=== PATIENT | female | born 1990 | race Asian ===

== ENCOUNTER → 2020-09-10 16:57 | Outpatient (CLI) | payer OTHER, SELFPAY ==
[2020-09-10 17:47] LABS: Add Manual Diff / Slide Review NO; Basophils Absolute Auto 0 /uL (0-100); Basophils Percent Auto 0.5 % (0-2); Eosinophils Absolute Auto 300 /uL (0-450); Eosinophils Percent Auto 3.4 % (2-4); Hematocrit 36.8 % (36-46); Hemoglobin 12.7 g/dL (12.0-16.0); Lymphocytes Absolute Auto 2000 /uL (1100-4500); Lymphocytes Percent Auto 22.1 % (25-40); Mean Corpuscular HGB Conc 34.6 % (30-36); Mean Corpuscular Hemoglobin 30.9 PG (26-34); Mean Corpuscular Volume 89.5 fL (80-100); Monocytes Absolute Auto 600 /uL (0-900); Monocytes Percent Auto 6.3 % (3-14); Neutrophils Absolute Auto 6200 /uL (1500-7000); Neutrophils Percent Auto 67.7 % (50-75); Platelet Count 281 X10^3/uL (150-400); Red Blood Cell Count 4.11 X10^6/uL (4.0-5.2); Red Cell Distribution Width 12.6 % (11.6-14.8); White Blood Cell Count 9.2 X10^3/uL (4.5-11.0)
[2020-09-10 18:28] LABS: Thyroid Stimulating Hormone 2.31 uIU/mL (0.47-4.68)
[2020-09-10 18:31] LABS: Hepatitis B Surface Antigen NEGATIVE s/c (NEGATIVE); Rubella Antibody IgG 4.7 IU/mL (>15)
[2020-09-10 18:51] LABS: HIV 1 & 2 Ab/Ag 4th Gen Combo NEGATIVE (NEGATIVE); Hep C Virus Ab w/Reflex Quant NEGATIVE s/c (NEGATIVE)
[2020-09-11 03:15] LABS: HSV Type 1 AB, IgG >62.20 index (0.00-0.90)
[2020-09-11 05:37] LABS: RPR Screen Non Reactive (Non Reactive)
[2020-09-11 07:10] LABS: Varicella IgG Antibody 718 index (Immune >165)
== END ==
PROVIDERS: Referring Provider Student in an Organized Health Care Education/Training Program; Visit Provider Student in an Organized Health Care Education/Training Program
DX: Z34.80 Encounter for supervision of other normal pregnancy, unspecified trimester (principal)
CPT/HCPCS: 36415; 80055; 84443; 86695; 86787; 86803; 86850; 86900; 86901; 87389

== ENCOUNTER → 2020-09-15 09:44 | Outpatient (CLI) | payer OTHER, SELFPAY ==
--- NOTE | 2020-09-15 09:46 | DI.US.S_ITS ---
PROCEDURE: US OB <= 14 WEEKS FETUS INDICATIONS: size and dates OUTSIDE/PRIOR DATING DATA: First dating scan (date and location): 09/15/2020. Estimated date of delivery (AIDEE) from first dating scan: 05/08/2020. TECHNIQUE: Real-time scanning was performed of the fetus and maternal pelvic organs, with image documentation. Endovaginal scanning was also performed to better visualize the fetus and maternal ovaries. COMPARISON: None. FINDINGS: Embryo: [place]-rump length measures 5 mm corresponding to 6 weeks 2 days. Heart rate: No definitive cardiac activity at this time. 8 mm rounded cystic structures also is noted within the amniotic sac. Measurement variability in dating: +/- 4 weeks by LMP, +/- 7 days by mean sac diameter (use before 6 weeks gestation if crown-rump length not able to be measured), +/- 5 days by crown-rump length (up to 8 weeks 6 days gestation), +/- 7 days by crown-rump length (up to 13 weeks 6 days gestation). Maternal organs: Ovaries within normal limits . IMPRESSION: Intrauterine with crown-rump length of 5 mm corresponding to 6 weeks 2 days and no definitive cardiac activity seen at this time. Follow-up in 1 week is recommended to assess embryonic viability. 8 mm cystic structure also noted within the amniotic sac of unclear etiology which also can be reassessed on follow-up exam. Dictated by: Dangelo MCLAIN Interpreted: Jermaine Epperson MD on 09/15/2020 at 11:47 Transcribed by: BEN on 09/15/2020 at 11:50 Approved by: Jermaine Epperson M.D. on 09/15/2020 at 15:36
== END ==
PROVIDERS: PCP Student in an Organized Health Care Education/Training Program; Referring Provider Student in an Organized Health Care Education/Training Program; Visit Provider Student in an Organized Health Care Education/Training Program
DX: Z36.87 Encounter for antenatal screening for uncertain dates (principal); Z3A.01 Less than 8 weeks gestation of pregnancy
CPT/HCPCS: 76801; 76817

== ENCOUNTER → 2021-07-27 11:25 | Outpatient (CLI) | payer OTHER, SELFPAY ==
[2021-07-27 15:08] LABS: Urine N gonorrhoeae NOT DETECTED
[2021-07-27 15:19] LABS: Urine Chlamydia NOT DETECTED
== END ==
PROVIDERS: PCP Student in an Organized Health Care Education/Training Program; Visit Provider Obstetrics & Gynecology
DX: Z34.82 Encounter for supervision of other normal pregnancy, second trimester (principal); Z3A.18 18 weeks gestation of pregnancy
CPT/HCPCS: 87491; 87591

== ENCOUNTER → 2021-07-27 11:34 | Outpatient (CLI) | payer OTHER, SELFPAY ==
[2021-07-27 12:44] LABS: Add Manual Diff / Slide Review NO; Basophils Absolute Auto 0 /uL (0-100); Basophils Percent Auto 0.2 % (0-2); Eosinophils Absolute Auto 0 /uL (0-450); Eosinophils Percent Auto 0.4 % (2-4); Hematocrit 32.2 % (36-46); Hemoglobin 11.4 g/dL (12.0-16.0); Lymphocytes Absolute Auto 1600 /uL (1100-4500); Lymphocytes Percent Auto 15.4 % (25-40); Mean Corpuscular HGB Conc 35.3 % (30-36); Mean Corpuscular Hemoglobin 31.2 PG (26-34); Mean Corpuscular Volume 88.4 fL (80-100); Monocytes Absolute Auto 600 /uL (0-900); Monocytes Percent Auto 5.5 % (3-14); Neutrophils Absolute Auto 8400 /uL (1500-7000); Neutrophils Percent Auto 78.5 % (50-75); Platelet Count 294 X10^3/uL (150-400); Red Blood Cell Count 3.65 X10^6/uL (4.0-5.2); Red Cell Distribution Width 13.4 % (11.6-14.8); White Blood Cell Count 10.6 X10^3/uL (4.5-11.0)
[2021-07-27 13:28] LABS: Hepatitis B Surface Antigen NEGATIVE s/c (NEGATIVE); Rubella Antibody IgG 2.6 IU/mL (>15)
[2021-07-27 13:47] LABS: HIV 1 & 2 Ab/Ag 4th Gen Combo NEGATIVE (NEGATIVE); Hep C Virus Ab w/Reflex Quant NEGATIVE s/c (NEGATIVE)
[2021-07-28 08:08] LABS: RPR Screen Non Reactive (Non Reactive)
[2021-07-28 10:03] LABS: Varicella IgG Antibody 588 index (Immune >165)
[2021-07-29 20:17] LABS: AFP, Serum 51.3 ng/mL (.); Calc Gestational Age Ultrasound (.); Estriol, Free 1.74 ng/mL (.); Inhibin A, Dimeric 195.03 pg/mL (.); Inhibin A, MoM 1.34 (.); Maternal Ethnicity Other (.); Maternal Weight 167 lbs (.); Number of Fetuses No (.); OSBR Risk 1 IN 7850 (.); Results Report (.); Test Results *Screen Negative* (.); hCG, MoM 1.59 (.); hCG, Serum 42264 mIU/mL (.)
== END ==
PROVIDERS: Referring Provider Obstetrics & Gynecology; Visit Provider Obstetrics & Gynecology
DX: Z34.82 Encounter for supervision of other normal pregnancy, second trimester (principal); Z3A.18 18 weeks gestation of pregnancy
CPT/HCPCS: 36415; 80055; 82105; 82677; 84702; 86336; 86787; 86803; 86850; 86900; 86901; 87389; 87491; 87591

== ENCOUNTER → 2021-08-10 07:28 | Outpatient (CLI) | payer OTHER, SELFPAY ==
--- NOTE | 2021-08-10 07:29 | DI.US.S_ITS ---
PROCEDURE: OB >= 14 WEEKS FETUS INDICATIONS: ANATOMY SCAN OUTSIDE/PRIOR DATING DATA: Last menstrual period (LMP): Unknown. LMP-based estimated date of delivery (AIDEE): Un known First dating scan (date and location): 06/07/2021. Estimated date of delivery (AIDEE) from first dating scan: 12/25/2021. TECHNIQUE: Real-time scanning was performed of the fetus, with image documentation and biometric measurements. COMPARISON: [facility], OB <= 14 WEEKS FETUS, 06/07/2021, 9:44. [facility] OB <= 14 WEEKS FETUS, 09/15/2020, 9:10. [facility], OB >= 14 WEEKS FETUS, 07/27/2021, 11:24. FINDINGS: General: A single living intrauterine gestation is present. Presentation: Transverse. Placenta: Placental position is posterior and is low lying , lower placental edge measures 2.2 cm to the cervix. Amniotic fluid index: 12.5 cm, normal range is 5-24 cm. heart rate: 147 beats per minute. Maternal cervical canal: 3.8 cm long. Normal lower limit is 2.5 cm. biometrics: Biparietal diameter: 4.8 cm 20 weeks 4 days Head circumference: 18.2 cm 20 weeks 4 days Abdominal circumference: 15.4 cm 20 weeks 4 days Femur length: 3.4 cm 20 weeks 5 days Composite gestational age from initial scan: 20 weeks 3 days Composite gestational age from present scan: 20 weeks 4 days Estimated weight and percentile: 366 g, 56th percentile Anatomic survey: Neuro: Ventricles are non-dilated at less than 10 mm. Cisterna magna is normal at 3-11 mm. Cerebellum is normal in size and morphology. Nuchal skin fold: Normal at less than 6 mm between 14-21 weeks gestational age. Face: Nose and lips are within normal limits. Profile is not well seen. Spine: No evidence for spina bifida. Heart: 4-chambered heart and ventricular outflow tracts are suboptimally evaluated.. Diaphragm: Diaphragm is intact. Stomach: Left-sided stomach is present. Kidneys: No hydronephrosis. Normal is less than 5 mm in 2nd trimester, less than 7 mm in 3rd trimester. Cord: 3-vessel cord has orthotopic insertion. Bladder: Normal in size. Extremities: All 4 extremities identified. IMPRESSION: Single live intrauterine with ultrasound gestational age today of 20 weeks 4 days. profile as well as 4 chambered heart/outflow tracts are not well seen. Recommend follow-up imaging for further evaluation. We strive to produce accurate, complete, and clear reports of imaging services. To assist us in improving patient care, this report was composed using standard report templates and voice recognition software. Therefore, it may contain abnormal punctuation, insertions and/or omissions. Occasional wrong-word or sound-alike substitutions may occur. Though we review the report and make efforts to correct it, we do recommend that the report be read carefully in proper context to recognize any text inaccuracies. Dictated by: Faiza Campos M.D. on 08/10/2021 at 15:36 Approved by: Faiza Campos M.D. on 08/10/2021 at 15:42
== END ==
PROVIDERS: Referring Provider Obstetrics & Gynecology; Visit Provider Obstetrics & Gynecology
DX: Z34.82 Encounter for supervision of other normal pregnancy, second trimester (principal); Z3A.20 20 weeks gestation of pregnancy
CPT/HCPCS: 76811

== ENCOUNTER → 2021-09-21 11:00 | Outpatient (CLI) | payer OTHER, SELFPAY ==
[2021-09-21 12:25] LABS: Appearance Urine UA CLEAR; Bilirubin Urine UA NEGATIVE (NEGATIVE); Color Urine UA YELLOW; Glucose Urine UA NEGATIVE (Negative); Ketones Urine UA NEGATIVE (NEGATIVE); Leukocyte Esterase Urine UA 1+ (NEGATIVE); Nitrite Urine UA NEGATIVE (Negative); Occult Blood Urine UA NEGATIVE (Negative); Protein Urine UA NEGATIVE (Negative); Specific Gravity Urine UA 1.015 (1.000-1.035); Urobilinogen Urine UA 0.2 E.U./dL (0.2); pH Urine UA 6.5 (4.5-8.0)
[2021-09-21 12:48] LABS: Bacteria Urine Many (>30); RBC Urine None Seen (0-5/HPF); Squamous Epithelial Cell Urine 1-5 /HPF (0-5/HPF); WBC Urine 1-5/HPF (0-5/HPF)
== END ==
PROVIDERS: Visit Provider Obstetrics & Gynecology
DX: Z34.80 Encounter for supervision of other normal pregnancy, unspecified trimester (principal)
CPT/HCPCS: 81003; 81015; 87086

== ENCOUNTER → 2021-09-21 11:15 | Outpatient (CLI) | payer OTHER, SELFPAY ==
[2021-09-21 13:41] LABS: Hematocrit 29.5 % (36-46); Hemoglobin 10.2 g/dL (12.0-16.0)
[2021-09-21 14:37] LABS: GTT (PREG) 1 Hour PP 50gm Dose 197 mg/dL (76-139)
== END ==
PROVIDERS: Referring Provider Obstetrics & Gynecology; Visit Provider Obstetrics & Gynecology
DX: Z34.82 Encounter for supervision of other normal pregnancy, second trimester (principal); Z3A.26 26 weeks gestation of pregnancy
CPT/HCPCS: 36415; 81003; 81015; 82950; 85014; 85018; 87086

== ENCOUNTER → 2021-09-29 14:49 | Outpatient (CLI) | payer OTHER, SELFPAY ==
--- NOTE | 2021-09-29 17:40 | DIAB.GDA ---
Addendum entered by Natacha Gleason 10/06/21 10:58: 10/06/21 phone check-in: BG in goal with FBG 90 or less and all pc readings <120 with exception to one meal of 131 mg/dl (wrap for lunch). trying to incorporate CHO in moderation as discussed. MARIO VELEZ follow-up in one week Original Note: Initial Gestational Diabetes Assessment Name: Kena Durant Date: 09/29/21 Time: 3-420p Dx: Gestational Diabetes Provider: Jay AIDEE: 12/25/21 Weeks: 27 Kena presents for initial visit regarding GDM. Denies any FH or PMH of DM. 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 Reports she is unclear if she has GDM or not. Unaware of SMBG rx placed. After discussion, plans to last picker rx today for BG checking 4 x per day. Reports she has changed her diet dramatically since GDM screen. Cut out sweetened beverages, coffee with whip cream, and reduced fast food intake. Not sleeping great due to staying up late to talk with with time difference of 8 hours. Diet Recall: wakes 6-7a 8-9a: slice ww bread, cottage cheese, almond butter, half banana, hb egg (30g CHO) 12-2p: salad with egg, cheese, veggies (0g) 1-3p: low carb yogurt (0g) 8-9p: 3-4oz salmon, g beans, brown rice with quinoa and flax (40g) 12a: toast with cheese, chipotle michaud (15g) Eating out: mcdonalds, applebees, pizza Beverages: 16-20oz x 3-4 water Anthropometrics: Ht: 62 Wt: 175# (last OB appt 09/21) Prepregnancy wt: 145# reported Physical Activity: Walks dog every other day for 60 minutes. Self-Monitoring Blood Glucose: None Diabetes Medications: None Pertinent Labs: Screen 197mg/dL H Nutrition Rx: Carbohydrates: Daily: 180g Meal: 45-60g lunch and dinner; 30g breakfast Snack: 15-30g Nutrition Diagnosis: Altered nutrition related lab value r/t GDM dx aeb recent OGTT Nutrition and food related knowledge deficit r/t new dx and no previous mnt aeb diet recall and pt report and lab work Self monitoring deficit r/t knowledge deficit aeb pt report of no SMBG Intervention: This participant was very receptive. Provided appropriate educational handouts. Discussed the following topics: GDM pathophysiology and impact of hyperglycemia on mom and baby Risk for T2DM for mom and baby in the future Ways to reduce risk T2DM Plate Method, meal timing, carb counting, pairing macronutrients and spreading out CHO for better BG management Blood glucose goals (FBG: <95 and 2 hour <120 mg/dL); importance of checking 4x per day (FBG and pc) Review of how to check BG, dispose of sharps, and resources Impact of macronutrients on blood glucose Recommended servings for carbohydrates at meals and snacks Brainstormed appropriate meal plan based on her food preferences Impact of sleep on FBG Role of physical activity and following provider guidelines for safety Goals: Work on getting adequate sleep Switch to regular thai yogurt Vary dinner protein die set up worker meter and supplies Check BG 4x per day (FBG and 2 hr pc) Follow-up: MARIO VELEZ follow-up in one week via phone and two weeks in-person Natacha Gleason RDN, AGUSTIN Certified Diabetes Care and Instrument Technician T: [phone] F: [phone] [email or web address] Thank you for this referral
== END ==
PROVIDERS: Referring Provider Obstetrics & Gynecology; Visit Provider Obstetrics & Gynecology
DX: O24.419 Gestational diabetes mellitus in pregnancy, unspecified control (principal); Z3A.27 27 weeks gestation of pregnancy; Z71.3 Dietary counseling and surveillance
CPT/HCPCS: 97802

== ENCOUNTER → 2021-10-14 14:34 | Outpatient (CLI) | payer OTHER, SELFPAY ==
--- NOTE | 2021-10-14 15:43 | DIAB.GDFU ---
Follow-up Gestational Diabetes Assessment Name: Kena Durant Date: 10/14/21 Time: 250-325p Dx: Gestational Diabetes Provider: Jay AIDEE: 12/25/21 Weeks: 29 Kena presents for follow-up. Has concerns about whether she is eating enough carbs. Reports most meals at 0-45g CHO. Endorses eating 4 meals per day without snacks. Some concern as to how this may impact her weight gain. Reports some days eating fish 3-4 x in a day, however is measuring her portions per week to about 12oz in a week. This may result in some low protein days, but mercury intake is not currently a concern. Diet Recall: 9a: slice of thin ww toast with eggs ; 1c rice with salmon and salad (10-45g) 12-1p: rice, 2 oz fish and salad ; low carb BLT wrap (0-45g CHO) 5-6p: same 8-9: same Has questions about having a cheat day or is regular soda is ok sometimes. Also questions about eating out portions. Usually has burger, medium guzman, and soda (90g CHO or more). has not been eating out recently due to GDM dx. Reports improved sleep recently. Anthropometrics: Ht: 62 Wt: 175# (last OB appt 09/21) Prepregnancy wt: 145# reported Physical Activity: Walks dog every other day for 60 minutes usually. heat this week has impacted the consistency. Reports trying to walk later in the day when cooler or aiming to be more active in home. Self-Monitoring Blood Glucose: Picked up SMBG supplies. Checking FBG and 2 hour pc as recommended. Many missing postprandial, especially after dinner. States she was in [place] for work and skipped some readings. Overall trends are mostly in goal with one recent FBG elevation and only 2 total elevated postprandial. Again, not sure how dinners usually trend. Reports high carb intake on the 148 mg/dL reading, ate out. Date Pre Post Pre Post Pre Post HS 10/06 90 111 124 10/08 87 76 148 10/09 93 10/11 97 117 104 10/12 91 105 101 10/13 94 10/14 88 101 104 Diabetes Medications: None Pertinent Labs: Screen 197mg/dL H Nutrition Rx: Carbohydrates: Daily: 180g Meal: 45-60g lunch and dinner; 30g breakfast Snack: 15-30g Nutrition Diagnosis: Altered nutrition related lab value r/t GDM dx aeb recent OGTT Nutrition and food related knowledge deficit r/t new dx and no previous mnt aeb diet recall and pt report and lab work- improved Self monitoring deficit r/t knowledge deficit aeb pt report of no SMBG- improved/in progress for 4 readings per day Inconsistent energy intake r/t larger portions more than 4 hours apart at times aeb diet recall- new Intervention: This participant was very receptive. Provided appropriate educational handouts. Discussed the following topics: Recent blood sugar results and impact of food and hormones Review of macronutrient recommendations during Discussed her concerns about carb intake. Seems she is often getting adequate intake unless using low carb tortillas all day. Label reading Avoiding sugar beverages Treats that may fit carb recs, avoiding an entire day of cheating but allowing for some treat foods she is craving at a meal or snack Eating out recs reviewed recs for fish during Discussed pro recs during and varying options SMBG: getting more postprandial readings, checking 4 x per day as much as possible before OB appt Eating schedule, meal/snack regimen Goals: Work on getting adequate sleep- met Switch to regular moroccan yogurt- not discussed Vary dinner protein- in progress residential support specialist meter and supplies- met Check BG 4x per day (FBG and 2 hr pc)- in progress Try to get more postprandial readings, especially dinner- new Try switching checking 5p v 8p meal- new Try 3pm snack- new When eating out, choose small guzman- new Follow-up: MARIO VELEZ follow-up in two weeks. Natacha Gleason RDN, AGUSTIN Certified Diabetes Care and Getter Welder T: [phone] F: [phone] [email or web address] Thank you for this referral
== END ==
PROVIDERS: Referring Provider Obstetrics & Gynecology; Visit Provider Obstetrics & Gynecology
DX: O24.419 Gestational diabetes mellitus in pregnancy, unspecified control (principal); Z3A.29 29 weeks gestation of pregnancy
CPT/HCPCS: 97803

== ENCOUNTER → 2021-10-27 15:50 | Outpatient (CLI) | payer OTHER, SELFPAY ==
--- NOTE | 2021-11-01 16:28 | DIAB.GDFU ---
Addendum entered by Natacha Gleason 11/03/21 18:04: 11/03/21: phone mary check-in. Kena reports checking FBG sometimes 2-3x in a row when elevated. The main difference more recently continues to be lack of sleep. FBG are slightly elevated or barely in goal over the last week. Plans to see OB next week and discuss. Encouraged more sleep and appropriate overnight fasting. Some concern about BG trending up as the weeks progress. Reports she cont to exercise and most pc readings in goal. Fasting BG 11/03 multiple checks: 101, 98, 95 11/02 two checks: 95, 97 11/01 92 10/31 92 10/30 85 (got more sleep and fasted a little longer 10/29 96 10/28 95 Original Note: Follow-up Gestational Diabetes Assessment Name: Kena Durant Date: 10/27/21 Time: 410-435p Dx: Gestational Diabetes Provider: Jay AIDEE: 12/25/21 Weeks: 31 Kena presents for GDM follow-up. Has been experiencing some higher FBG readings, see SMBG. Reports keeping rice to 1c. Main issue right now is inadequate sleep. States she has not been sleeping well, staying up until 230am. This is r/t back pain, sleeping sitting up (cannot sleep on her side), and frequent urination. Then lets her dogs out at 5-6am, resulting in broken sleep from 230-6am. She does take a nap in the afternoon, but then requires coffee to finish chores. Reports h/o meditation before bed. Added afternoon snack as discussed. Not eating out currently. Anthropometrics: Ht: 62 Wt: 174# (last OB appt 10/19), down one pound since last visit Prepregnancy wt: 145# reported Physical Activity: walking dogs q other day for 60 min Self-Monitoring Blood Glucose: Increases in FBG since 10/22 when she began having sleep issues. After meal readings mostly in goal, with exception to one pc breakfast after high fasting. Endorses 8+ hours fasting overnight prior to checking. Date Pre Post Pre Post Pre Post HS 10/19 94 94 120 94 8/3 85 93 116 8/4 92 102 127 1.5 hour 10/22 96 109 8/6 96 8/9 96 92 99 109 8/10 106 128 Diabetes Medications: None Pertinent Labs: Screen 197mg/dL H Intervention: This participant was very receptive. Provided appropriate educational handouts. Discussed the following topics: Recent blood sugar results and impact of sleep and hormones Strategies for improved sleep Goals: Check BG 4x per day (FBG and 2 hr pc)- improved Try to get more postprandial readings, especially dinner- improved Try switching checking 5p v 8p meal- met Try 3pm snack- met When eating out, choose small guzman- d/c D/c coffee in pm- new Try meditation before bed- new Follow-up: MARIO VELEZ follow-up in one week phone call and two week in person Natacha Gleason RDN, AGUSTIN Certified Diabetes Care and Junior Copywriter T: [phone] F: [phone] [email or web address] Thank you for this referral
== END ==
PROVIDERS: Referring Provider Obstetrics & Gynecology; Visit Provider Obstetrics & Gynecology
DX: O24.419 Gestational diabetes mellitus in pregnancy, unspecified control (principal); Z3A.31 31 weeks gestation of pregnancy
CPT/HCPCS: G0108

== ENCOUNTER → 2021-11-12 12:54 | Outpatient (CLI) | payer OTHER, SELFPAY ==
--- NOTE | 2021-11-15 15:10 | DIAB.GDFU ---
Follow-up Gestational Diabetes Assessment Name: Kena Durant Date: 11/12/21 Time: 108-145p Dx: Gestational Diabetes Provider: Jay AIDEE: 12/25/21 Weeks: 33-34 Kena presents for GDM follow-up. FBG have improved with better sleep. Has had some elevations from fast food intake. Overall reports baby is measuring well and no concerns from OB. States sleep is still a challenge but going to bed earlier than last visit. Stopped drinking coffee in the afternoon. States her SMBG supplies are not covered by insurance. This seems like an oversight between pharmacy and insurance? Reports reduced veggie intake and increased carb intake. Anthropometrics: Ht: 62 Wt: 172# last OB visit (down 2#) Prepregnancy wt: 145# Physical Activity: No exercise currently but trying to incorporate regular movement at home. Self-Monitoring Blood Glucose: FBG improved since last visit, no readings >95. Some elevations after lunch from high carb intake, ie fast food or pasta. Date Pre Post Pre Post Pre Post HS 11/06 91 101 125 108 11/07 95 123 116 11/08 91 118 148 11/09 90 135 122 11/10 91 100 97 104 11/11 90 90 100 108 11/12 83 Diabetes Medications: None Pertinent Labs: Screen 197mg/dL H Nutrition Rx: Carbohydrates: Daily: 180g Meal: 45-60g lunch and dinner; 30g breakfast Snack: 15-30g Nutrition Diagnosis: Altered nutrition related lab value r/t GDM dx aeb recent OGTT Excessive CHO intake r/t cheat meals aeb pt report Intervention: This participant was very receptive. Provided appropriate educational handouts. Discussed the following topics: Recent blood sugar results and impact of food and rec portions Benefits, resources, and nutrition for recommendations for nutrition and physical activity recommendations for T2DM risk reduction OGTT at 6-12 weeks Checking blood sugars twice per week (goal: fasting <100 mg/dL and 2 hour pc <140 mg/dL) until 6 week check-up HgA1c q 1-3 years. Goals: D/c coffee in pm- met Try meditation before bed- met Keep pasta to one cup- new Avoid fast food - new Buy veggies at grocery store- new Follow-up: MARIO VELEZ follow-up in txn Natacha Gleason RDN, AGUSTIN Certified Diabetes Care and Doughnut Icer T: [phone] F: [phone] [email or web address] Thank you for this referral
== END ==
PROVIDERS: Referring Provider Obstetrics & Gynecology; Visit Provider Obstetrics & Gynecology
DX: O24.419 Gestational diabetes mellitus in pregnancy, unspecified control (principal); Z3A.33 33 weeks gestation of pregnancy
CPT/HCPCS: 97803

== ENCOUNTER → 2021-12-07 08:46 | Outpatient (CLI) | payer OTHER, SELFPAY ==
[2021-12-08 18:04] LABS: Strep Grp B PCR NEG for Grp B Strep
== END ==
PROVIDERS: Visit Provider Obstetrics & Gynecology
DX: Z34.83 Encounter for supervision of other normal pregnancy, third trimester (principal); Z3A.37 37 weeks gestation of pregnancy
CPT/HCPCS: 87653

== ENCOUNTER 2021-12-13 14:09 | Outpatient (CLI) | payer OTHER, SELFPAY | END 2021-12-13 14:55 | disposition home or self-care (01) | LOC: LABOR 15:21 → OB 12-22 12:15 | PROVIDERS: Referring Provider Obstetrics & Gynecology; Visit Provider Obstetrics & Gynecology | DX: O36.8130 Decreased fetal movements, third trimester, not applicable or unspecified (principal); O47.1 False labor at or after 37 completed weeks of gestation; Z3A.38 38 weeks gestation of pregnancy | CPT/HCPCS: 59025; G0378; G0379 ==

== ENCOUNTER 2021-12-27 06:55 | Inpatient (IN) | payer OTHER, SELFPAY ==
[2021-12-27 07:53] VITALS: BP 107/64
[2021-12-27 08:07] LABS: Add Manual Diff / Slide Review NO; Basophils Absolute Auto 0 /uL (0-100); Basophils Percent Auto 0.6 % (0-2); Eosinophils Absolute Auto 0 /uL (0-450); Eosinophils Percent Auto 0.6 % (2-4); Hematocrit 31.1 % (36-46); Hemoglobin 10.2 g/dL (12.0-16.0); Lymphocytes Absolute Auto 1800 /uL (1100-4500); Lymphocytes Percent Auto 30.2 % (25-40); Mean Corpuscular HGB Conc 32.9 % (30-36); Mean Corpuscular Hemoglobin 27.2 PG (26-34); Mean Corpuscular Volume 82.5 fL (80-100); Monocytes Absolute Auto 400 /uL (0-900); Neutrophils Absolute Auto 3700 /uL (1500-7000); Neutrophils Percent Auto 61.6 % (50-75); Platelet Count 255 X10^3/uL (150-400); Red Blood Cell Count 3.77 X10^6/uL (4.0-5.2); Red Cell Distribution Width 16.3 % (11.6-14.8)
[2021-12-27] MEDS: LACTATED RINGERS 1,000 ML 100 ML IV ×2 (08:17→18:39)
[2021-12-27] MEDS: OXYTOCIN PREMIX 30 UNIT/500 ML PLAST..BAG IV (08:17)
[2021-12-27 08:20] LABS: COVID19 -Nasal RAPID Negative (Negative)
--- NOTE | 2021-12-27 12:04 | P.HPOB_ITS ---
OB HPI Date/Time Date of admission: 12/27/21 Date Patient Seen: 12/27/21 Time Patient Seen: 07:10 History of Present Condition Chief complaint: INDUCTION AIDEE Calculator Estimated Delivery Date Method Current WG Current Estimate 12/25/21 LMP (Certain) 40w 2d Estimated Gestational Age (weeks): 40+2 : 3 Para: 0 care: good care, initiated at week # (11), number of visits (10) and pounds weight gain (9) Dating criteria OB: LMP confirmed by 1st trimester US Ultrasounds: normal 1st trimester US and normal mid trimester US Obstetrical complications: gestational diabetes (diet controlled) Medical complications OB: none Indications Indication for induction OB: gestational diabetes and post dates Preadmission Labs Last OB Lab Results: Blood Type B Positive 12/27/21 07:30 Antibody Screen Negative 12/27/21 07:30 Hematocrit 31.1 % (36-46) L 12/27/21 07:30 Hemoglobin 10.2 g/dL (12.0-16.0) L 12/27/21 07:30 Hepatitis B Surface Antigen Negative s/c (NEGATIVE) 07/27/21 11 :59 Hepatitis C Antibody Negative s/c (NEGATIVE) 07/27/21 11:59 Rubella Antibody 2.6 IU/mL (>15) L 07/27/21 11:59 Varicella-Zoster IgG Antibody 588 index (Immune >165) 07/27/21 11:59 Glucose 1 Hour 197 mg/dL (76-139) H 09/21/21 12:29 Group B Streptococcus (PCR) Neg for grp b strep 12/07/21 08:46 -: Chlamydia screen: negative, Gonorrhea screen: negative and Urine: negative Genetic Screens: Quad screen: Normal External Labs -: Urine: negative Prior (ies) Past Pregnancies Del. Date GA/Weeks Labor Lgth Wt Sex Route Outcome Anesthesia Place Delv Breastfeed Preg Comp Name 07/20/16 6 spontaneous 09/22/20 7 spontaneous Evaluation Evaluation Baseline heart rate: 135 Variability: Moderate (11-25) monitor accelerations: Present Monitor Decelerations: Absent Dilation (cm): 4 Effacement (%): 100 station: 0 PFSH Medical History (Updated 11/23/21 @ 09:14 by Karma Thompson MD) Spontaneous UTI (urinary tract infection) Surgical History (Updated 05/31/21 @ 08:55 by Laura Humphries RN) History of wisdom tooth extraction Social History marital status: number of children: 0 household members: spouse and friend(s) lives independently: Yes pets and animals: Yes (dog, 2 cats - does boxes) education level: college (current) occupational status: unemployed current occupational exposures/hazards: No special joshua needs: No seatbelt use: always water heater temp set < 120 deg: Yes (will check) working smoke detector in home: No fire extinguisher in home: No carbon monox detector in home: Yes firearms in home: No do you feel safe at home: Yes Smoking Status: Former smoker (Quit 1 year ago) second hand exposure: No alcohol intake: former substance use type: does not use during the past year weight has: remained stable well-balanced diet: daily or most days daily servings fruits/ve-4 caffeine: Yes (limit to 200mg daily) Type(s) of exercise: walking Meds Home Medications and Allergies Home Medications Medication Instructions Recorded Confirmed Type prenat.vits,mary,tkk-haqq-wyxqk 1 tab PO DAILY 05/31/21 12/27/21 History blood-glucose meter #1 ea 09/21/21 12/27/21 Rx lancets 30 gauge and blood glucose #100 ea 09/21/21 12/27/21 Rx strips combo pack double electric breast pump 1 ea topical .prn #1 ea 11/23/21 12/27/21 Rx Allergies Allergy/AdvReac Type Severity Reaction Status Date / Time No Known Drug Allergies Allergy Unverified 12/21/21 11:06 OB Exam Narrative Exam Narrative: Generally: Patient walking around her room, no acute distress Lungs: Clear to auscultation bilaterally Cardiovascular: Regular rate and rhythm Fundal height: 40 cm Estimated weight: 8 lb Extremities: Trace edema Objective Labs Result Diagrams: 12/27/21 07:30 Labs: Laboratory Results - last 24 hr 12/27/21 12/27/21 12/27/21 07:30 07:30 07:30 WBC 6.0 RBC 3.77 L Hgb 10.2 L Hct 31.1 L MCV 82.5 MCH 27.2 MCHC 32.9 RDW 16.3 H Plt Count 255 Neut % (Auto) 61.6 Lymph % (Auto) 30.2 [place] % (Auto) 7.0 Eos % (Auto) 0.6 L Baso % (Auto) 0.6 Neut # (Auto) 3700 Lymph # (Auto) 1800 [place] # (Auto) 400 Eos # (Auto) 0 Baso # (Auto) 0 SARS-CoV-2 (PCR) Negative Blood Type B Positive Antibody Screen Negative Assessment and Plan Assessment and Plan Assessment and Plan narrative: Assessment: 31-year-old 3 para 0 at 40-,2/7 weeks gestation with diet-controlled gestational diabetes Plan: Pitocin per protocol 2 Artificial rupture membranes when able Epidural as necessary Expected management to spontaneous vaginal delivery Time Spent with Patient Total time spent with greater than 50% in coordination of care (as documented) at patient's floor/unit and/or counseling patient:: 15-24 minutes
--- NOTE | 2021-12-27 12:04 | PM.OBPNLAB ---
Date/Time Date Patient Seen: 12/27/21 Time Patient Seen: 12:04 Pain Control Pain control: tolerating well Pelvic Exam Dilation (cm): 5 Effacement (%): 85 station: 0 Amniotic membrane status: Intact Contractions Contractions on admission: none Pitocin rate (mU/min): 10 Contraction frequency (min): 3 Contraction duration (min): 1 Contraction pattern: Regular Contraction intensity: Moderate Status status: Category l Heart Rate Baseline: 135 Monitor Accelerations: Present Monitor Decelerations: Absent Monitor Variability: Moderate Assessment and Plan Assessment: induction ongoing Comments: Membranes with clear amniotic fluid Epidural as necessary Expected management to spontaneous vaginal delivery
--- NOTE | 2021-12-27 20:37 | PM.OBPNLAB ---
Date/Time Date Patient Seen: 12/27/21 Time Patient Seen: 17:50 Pain Control Pain control: tolerating well Pelvic Exam Dilation (cm): 6 Effacement (%): 100 station: 0 Amniotic membrane status: Ruptured Contractions Contractions on admission: none Monitor mode: External Pitocin rate (mU/min): 2 Contraction frequency (min): 3 Contraction duration (min): 1 Contraction intensity: Strong/Firm Status status: Category l Heart Rate Baseline: 135 Monitor Accelerations: Present Monitor Decelerations: Absent Monitor Variability: Moderate Assessment and Plan Assessment: active labor and induction ongoing Plan: continuous present management Comments: Pt to get into the tub for pain management Expectant management to
--- NOTE | 2021-12-27 20:43 | PM.OBPNLAB ---
Date/Time Date Patient Seen: 12/27/21 Time Patient Seen: 20:44 Pain Control Pain control: other (Very uncomfortable, asking for epidural) Pelvic Exam Dilation (cm): 6 Effacement (%): 100 station: 0 Amniotic membrane status: Ruptured Contractions Contractions on admission: none Monitor mode: External Pitocin rate (mU/min): 2 Contraction frequency (min): 3 Contraction duration (min): 1 Contraction pattern: Regular Contraction intensity: Strong/Firm Status status: Category l Heart Rate Baseline: 135 Monitor Accelerations: Present Monitor Decelerations: Absent Monitor Variability: Moderate Assessment and Plan Assessment: induction ongoing Comments: Epidural Pitocin off
[2021-12-28] MEDS: ONDANSETRON 4 MG/2 ML INJ IV (03:53)
--- NOTE | 2021-12-28 06:54 | PM.OBPNLAB ---
Date/Time Date Patient Seen: 12/28/21 Time Patient Seen: 06:54 Pain Control Pain control: epidural Pelvic Exam Dilation (cm): 9 Effacement (%): 100 station: +1 Amniotic membrane status: Ruptured Contractions Contractions on admission: none Monitor mode: External Pitocin rate (mU/min): 14 Contraction frequency (min): 3 Contraction pattern: Regular Contraction intensity: Strong/Firm Status status: Category l Heart Rate Baseline: 135 Monitor Accelerations: Present Monitor Decelerations: Absent Monitor Variability: Moderate Assessment and Plan Assessment: active labor and induction ongoing Plan: continuous present management Comments: Side to side Expectant management to
--- NOTE | 2021-12-28 09:35 | P.PCN_ITS ---
Regional Block Pre-procedure Procedure: Continuous Lumbar Epidural for L&D Attending OB provider: Karma Thompson PMH/ROS narrative: term labor, GDM, diet controlled ASA Class: II Labs: Hct 31.1 % (36-46) L 12/27/21 07:30 Plt Count 255 X10^3/uL (150-400) 12/27/21 07:30 Medications: Current Medications Generic Name Dose Route Start Last Admin Trade Name Freq PRN Reason Stop Dose Admin Calcium Carbonate 1,000 mg 12/27/21 07:52 Calcium Carbonate 500 Mg Tab PO Q2HR PRN Dyspepsia Carboprost Tromethamine 250 mcg 12/27/21 07:52 Carboprost 250 Mcg/Ml Ampul IM Q90M PRN Bleeding Diphenhydramine HCl 25 mg 12/27/21 20:35 Diphenhydramine 50 Mg/Ml Vial IV Q10M PRN Pruritis Fentanyl 50 mcg 12/27/21 07:52 Fentanyl 100 Mcg/2 Ml Inj IV Q1H PRN Pain, Moderate (4-6) Lactated Ringer's 1,000 mls @ 100 mls/hr 12/27/21 08:00 12/27/21 18:39 Lactated Ringers IV 100 mls/hr CONT YOSELIN Administration Oxytocin/Lactated Ringer's 30 unit in 500 mls @ 200 mls/hr 12/27/21 07:52 Oxytocin Premix IV CONT PRN Bleeding Protocol Oxytocin/Lactated Ringer's 30 unit in 500 mls @ 3 mls/hr 12/27/21 08:00 12/27/21 08:17 Oxytocin Premix IV 3 milliunit/min TITRATE YOSELIN 3 mls/hr Administration Protocol 3 MILLIUNIT/MIN Tranexamic Acid 1,000 mg/ 100 mls @ 200 mls/hr 12/27/21 07:52 Sodium Chloride IV NOW PRN Bleeding FENT 2MCG/ML BUPIV 0.125% EPI 200 mcg in 100 mls @ 6 mls/hr 12/27/21 20:45 Fentanyl/Bupiv/Ns 2mcg/Ml - 0.125% EPIDURAL CONT YOSELIN Methylergonovine Maleate 0.2 mg 12/27/21 07:52 Methylergonovine 0.2 Mg/Ml Vial IM NOW PRN Bleeding Methylergonovine Maleate 0.2 mg 12/27/21 07:52 Methylergonovine 0.2 Mg Tablet PO Q6HR PRN Heavy Bleeding Misoprostol 1,000 mcg 12/27/21 07:52 Misoprostol 200 Mcg Tablet NE NOW PRN Bleeding Misoprostol 400 mcg 12/27/21 07:52 Misoprostol 200 Mcg Tablet SL NOW PRN Bleeding Misoprostol 800 mcg 12/27/21 07:52 Misoprostol 200 Mcg Tablet NE NOW PRN Bleeding Nalbuphine HCl 2.5 mg 12/27/21 20:35 Nalbuphine 20 Mg/Ml Ampul IV Q10M PRN Pruritis Naloxone HCl 0.2 mg 12/27/21 07:52 Naloxone 0.4 Mg/Ml Vial IV Q2MIN PRN Opiate Reversal Ondansetron HCl 4 mg 12/27/21 07:52 12/28/21 03:53 Ondansetron 4 Mg/2 Ml Inj IV 4 mg Q4HR PRN Administration Nausea And Vomiting Oxytocin 10 unit 12/27/21 07:52 Oxytocin 10 Unit/Ml Vial IM NOW PRN Bleeding Allergies: Allergies Allergy/AdvReac Type Severity Reaction Status Date / Time No Known Drug Allergies Allergy Unverified 12/21/21 11:06 Procedure Insertion date: 12/27/21 Insertion time: 20:50 Prep/Local: betadine x3 and 1% lidocaine Interspace: L3-4 Needle: 18 gauge [email or web address] (CSE: 27g Pencan through [employer], clear CSF, 2.5mg MPF bupiv) MARCUS at (cm): 5 Catheter placed at SKIN (cm): 10 Catheter in SPACE (cm): 5 Insertion: No CSF, No Blood, No Paresthesia with insertion, No Paresthesia with injection and No Test dose reaction Initial Medications TEST DOSE time: 20:55 TEST DOSE: 1.5% lidocaine with epinephrine 1:200k (mL): 3 BOLUS DOSE time: 20:59 BOLUS DOSE (mL): 5 BOLUS DOSE med: other (infusate) Infusion INFUSION: 0.125% bupivacaine and with fentanyl 2 mcg/mL Initial rate (mL/hr): 8 Subsequent interventions: Post-procedure Anesthesia time START: 20:44 Anesthesia time END: 11:03 Post-procedure Anesthesia Assessment: Yes CV function: HR/BP stable, Yes Resp function: RR/sat/airway adequate, Yes Mental status appropriate and No Anesthesia complications
--- NOTE | 2021-12-28 13:27 | P.PCNOB_ITS ---
Events: Gestational Diabetes (Diet controlled) and Labor Induction Labor & Delivery Delivery date: 12/28/21 Cervical ripening method: none Induction method: per pitocin protocol Delivery augmentation: rupture of membranes Delivery monitor: external FHT and external uterine Route of delivery: Episiotomy description: None L&D Laceration Description: Periurethral - 1st Degree, Perineal - 2nd Degree and Vaginal - 2nd Degree Delivery repair: vicryl and chromic Estimated blood loss (mL): 200 Anesthesia Type: Epidural Complications: None Narrative: Patient complete and pushed for 2 hours. At 10:53 a.m., a live male delivered spontaneously over an intact perineum in the MERA presentation. No nuchal cord. The remainder of the body delivered without difficulty and was placed on mom's abdomen. The cord was double clamped and cut after the cord stopped pulsing. Cord bloods were obtained. Pitocin was given in the IV fluids. The placenta delivered intact with a three-vessel cord at 11:05 a.m.. The fundus was massaged to firm. A second-degree vaginal/perineal laceration was repaired with 2 0 Vicryl and 2-0 chromic. A first-degree periurethral midline laceration was repaired with 3-0 chromic. Hemostasis was achieved. Apgars 7 at 1 minute and 9 at 5 minutes. Estimated blood loss 200 cc. weight 8 lb 13 oz. . Epidural analgesia. Mom and infant stable to recovery. [place] Baby 1: gender: Male Presentation: vertex Position: Left Occiput Anterior Placenta delivery description: Spontaneous Cord Vessel Description: 3 Vessels and Clamped/Cut (After cord stopped pulsing) score (1 min): 7 score (5 min): 9 weight: 8 lb 13 oz Plan for aftercare: Routine care
--- NOTE | 2021-12-28 13:27 | PM.OBPNLAB ---
Date/Time Date Patient Seen: 12/28/21 Time Patient Seen: 08:00 Pelvic Exam Effacement (%): 100 station: +1 Amniotic membrane status: Ruptured Contractions Monitor mode: External Contraction frequency (min): 3 Contraction pattern: Regular Contraction intensity: Strong/Firm Status status: Category l
[2021-12-28] MEDS: IBUPROFEN 600 MG TABLET PO ×2 (13:35→19:16)
[2021-12-28] MEDS: DERMOPLAST SPRAY 20% 60 ML 1 SPRAY TOP (16:10)
[2021-12-29] MEDS: IBUPROFEN 600 MG TABLET PO ×2 (06:47→13:58)
[2021-12-29 08:44] LABS: Hematocrit 26.8 % (36-46); Hemoglobin 8.8 g/dL (12.0-16.0)
[2021-12-29] MEDS: DOCUSATE 100 MG CAPSULE PO (13:59)
[2021-12-29 18:35] VITALS: BP 107/64
--- NOTE | 2021-12-29 18:49 | P.DS_ITS ---
Discharge Providers Provider Date of admission: 12/27/21 06:55 Discharge Date: 12/29/21 Primary care physician: Dahiana REED Provider Consults: 12/29/21 11:29 Consult to Lay Out Former Routine Comment: Discharge provider: Karma Thompson MD Summary Hospital Course Date Patient Seen: 12/29/21 Time Patient Seen: 18:49 Diagnoses: 40-4/7 weeks gestation Induction of labor with Pitocin Artificial rupture of membranes Prolonged rupture of membranes Epidural analgesia Spontaneous vaginal delivery Second-degree vaginal/perineal laceration and repair First-degree periurethral laceration and repair Hospital Course: Patient is a 31-year-old 3 para 1 who presented on December 27, 2021 for scheduled induction of labor. She had diet-controlled gestational diabetes through the . She was started on Pitocin. Artificial rupture membranes was performed. Late in the day she received an epidural for pain management. She slowly progressed to complete dilation overnight. She pushed for 2 hours and had a spontaneous vaginal delivery without complication. Her course was unremarkable. She is discharged home on day # 1. Peripartum Data Delivery Method: Natural Vaginal Laceration Description: Periurethral - 1st Degree, Perineal - 2nd Degree and Vaginal - 2nd Degree Episiotomy description: None Procedures: Pitocin induction of labor Artificial rupture of membranes Epidural analgesia Spontaneous vaginal delivery Second-degree vaginal/perineal laceration repair Midline periurethral first-degree laceration repair complications: none 1: Gender: Male Disposition of : home Status at Discharge Cognitive/behavioral status at discharge: oriented Functional status at discharge: independent ambulation Overall status at discharge: patient is progressing back to baseline Time Spent with Patient Time attestation: Total time spent providing and/or coordinating discharge services: Time spent: Less than 30 minutes Objective Labs Result Diagrams: 12/29/21 08:04 Labs: Laboratory Results - last 24 hr 12/29/21 08:04 Hgb 8.8 L Hct 26.8 L Exam Narrative Exam Narrative: Generally: Patient walking around in room, no acute distress Fundus: Firm at U -1 Extremities: Trace edema, negative Homans Discharge Plan Discharge Plan Patient Disposition: Home Provider Discharge Comment: Call with fever, chills, or bleeding vaginally more than a pad in an hour Call with any redness or tenderness in the calves Tylenol 650 mg every 6 hours as needed for pain Ibuprofen 600 mg every 6 hours as needed for cramping Discharge orders & Medications Prescriptions: Continued double electric breast pump 1 ea topical .prn Qty: 1 0RF Rx Instructions: With supplies prenat.vits,mary,[id number] Tablet 1 tab PO DAILY No Action (DME) blood-glucose meter Misc See Rx Instructions .Route Qty: 1 0RF Rx Instructions: Use to check blood sugar 4 x daily and record on log sheet. (DME) lancets-blood glucose strips 30 gauge combo pack See Rx Instructions .MEDSUPPLY Qty: 100 2RF Rx Instructions: Use to check blood sugar 4 times daily as directed and record on log sheet Follow up/Referrals: Karma Thompson MD [Physician] - 02/08/22 1:30 pm ProviderDahiana [Primary Care Provider] - Diet/Activity/Treatments Diet: Regular Activity: Nothing in the vagina for 6 weeks Skin/Wound/Dressing Care Report to your healthcare provider any signs of infection, such as:: chills, fever, increased pain, unusual drainage and unusual redness Visit Report/Discharge Packet Instructions: DI for Labor and Delivery, Vaginal Discharge Data Primary Care Provider: Dahiana Mckeon
== END 2021-12-29 18:35 | disposition home or self-care (01) | DRG 807 ==
PROVIDERS: Admitting Provider Obstetrics & Gynecology; Referring Provider Obstetrics & Gynecology; Visit Provider Obstetrics & Gynecology
DX: O24.420 Gestational diabetes mellitus in childbirth, diet controlled (principal); Z37.0 Single live birth; Z3A.40 40 weeks gestation of pregnancy; O71.82 Other specified trauma to perineum and vulva; O70.1 Second degree perineal laceration during delivery; Z20.822 Contact with and (suspected) exposure to COVID-19
CPT/HCPCS: 01967; 36415; 59050; 59400; 85014; 85018; 85025; 86850; 86900; 86901; 87635; C9803; G0379; J2405; J2590

== ENCOUNTER → 2022-02-18 09:48 | Outpatient (CLI) | payer OTHER, MEDICAID, SELFPAY ==
[2022-02-18 12:24] LABS: Glucose 1 Hour 110 mg/dL (70-170)
[2022-02-18 12:28] LABS: Glucose Tol Interpretation INTERPRETATION
[2022-02-18 12:38] LABS: Glucose Fasting 87 mg/dL (70-100)
[2022-02-18 13:21] LABS: Glucose 2 Hour 94 mg/dL (70-140)
== END ==
PROVIDERS: Referring Provider Obstetrics & Gynecology; Visit Provider Obstetrics & Gynecology
DX: Z86.32 Personal history of gestational diabetes (principal)
CPT/HCPCS: 36415; 82951; 82952